=== PATIENT | female | born 1965 | race Caucasian/White ===

== ENCOUNTER 2016-11-13 06:47 | Day surgery (SDC) | payer BC, MEDICAID ==
[~2016-11-13] VITALS: Ht 162.6 cm; Wt 49.1 kg
[~2016-11-13 06:47] MED LIST: ALPR.5 PO; GABA300C5 PO; HYDR-3580 PO; MULT-207 PO; VENL75TA PO
[2016-11-13 07:05] VITALS: BP 114/68; PULSE 75; RESP 20; TEMP 98.3; O2SAT 96
[2016-11-13] MEDS ORDERED: IMIT100T PO (07:15)
[2016-11-13] MEDS ORDERED: PROZ20CA11 PO (07:15)
[2016-11-13 07:56] LABS: AUTOMATED NEUTROPHIL # 3.1 TH/MM3 (1.8-7.7); BASOPHIL % 0.6 % (0.0-2.0); EOSINOPHIL # 0.1 TH/MM3 (0-0.4); EOSINOPHIL % 2.4 % (0.0-4.0); HEMATOCRIT 31.6 % (35.0-46.0); HEMO FLAGS DIFF FINAL; LYMPH % 35.9 % (9.0-44.0); LYMPHOCYTE # 2.1 TH/MM3 (1.0-4.8); MEAN CELL VOLUME 93.1 FL (80.0-100.0); MEAN CORPUSCULAR HEMOGLOBIN 31.1 PG (27.0-34.0); MEAN CORPUSCULAR HGB CONC 33.4 % (32.0-36.0); MONO % 8.7 % (0.0-8.0); NEUT % 52.4 % (16.0-70.0); PLATELET COUNT 244 TH/MM3 (150-450); RED CELL DISTRIBUTION WIDTH 12.8 % (11.6-17.2); WHITE BLOOD COUNT 5.8 TH/MM3 (4.0-11.0)
[2016-11-13 08:06] LABS: APTT (PATIENT) 25.9 SEC (24.3-30.1); INTERNATIONAL NORMALIZED RATIO 0.9 RATIO; PROTHROMBIN TIME - PATIENT 9.4 SEC (9.8-11.6)
[2016-11-13 08:10] LABS: BICARBONATE 27.7 MEQ/L (21.0-32.0); POTASSIUM 4.1 MEQ/L (3.5-5.1)
[2016-11-13] MEDS ORDERED: LACTATED RINGER'S 1000 ML INJ 1,000 ML IV SCH ×2 (08:15→09:00)
[2016-11-13] MEDS ORDERED: DIAZEPAM 5 MG TAB PO SCH (08:15)
[2016-11-13] MEDS ORDERED: IOHEXOL 300 MG/ML 50 ML BTL (for RAD DIAG) IT ONE (08:43)
[2016-11-13] MEDS ORDERED: ACETAMINOPHEN 325 MG TAB PO PRN (09:00)
[2016-11-13] MEDS ORDERED: SODIUM CHLOR 0.9% 1000 ML INJ 1,000 ML IV PRN (09:00)
[2016-11-13] MEDS ORDERED: oxyCODONE/ACETAMINOPHEN 5 MG/325 MG TAB PO PRN (09:00)
[2016-11-13] MEDS ORDERED: ONDANSETRON HCL 4 MG/2 ML VIAL IV PRN (09:00)
--- NOTE | 2016-11-13 09:01 | PD.RAD ---
Post Procedure Progress Note Pre Procedure Diagnosis: (1) Lumbago (2) Cervical radicular pain Post Procedure Diagnosis: (1) Cervical radicular pain (2) Lumbago Procedure Date: Nov 13, 2016 Supervising Radiologist: Kingston Woods Proceduralist/Assist: Judah Greene, RT(R), RT Unruly(R)() Anesthesia: Local Plan of Activity Patient to Unit: ROPU Patient Condition: Good Additional Comments: L2-3 puncture See PACS Report for procedural detail/treatment Kingston Woods MD Nov 13, 2016 09:01
[2016-11-13 09:10] VITALS: BP 93/64; PULSE 68; RESP 20; TEMP 97.9; O2SAT 98
--- NOTE | 2016-11-13 12:04 | RADRPT ---
EXAM DATE/TIME: 11/13/2016 10:17 [facility] COMPARISON: No previous studies available for comparison. INDICATIONS : Post myelogram RADIATION DOSE: 20.68 CTDIvol (mGy) CT of thecervical spine was performed post myelogram. MEDICAL HISTORY : None SURGICAL HISTORY : cervical fusion ENCOUNTER: Initial ACUITY: 1 day PAIN SCALE: 0/10 LOCATION: neck TECHNIQUE: Volumetric scanning of the cervical spine was performed. Multiplanar reconstructions in the sagittal, coronal and oblique axial planes were performed. Using automated exposure control and adjustment o f the mA and/or kV according to patient size, radiation dose was kept as low as reasonably achievable to obtain optimal diagnostic quality images. FINDINGS: Thin section axial imaging of the cervical spine was performed. Sagittal and coronal imaging demonstrate adequate alignment of the vertebral bodies. There has been p revious fusion across the C5/6 level. The hardware is in excellent position. The fusion is solid. There is contrast evident within the thecal sac. The cerebellar tonsils are in their appropriate loca tion. C1/2: No acute bony abnormality identified. C2/3: The thecal space is adequate. The neural foramina are adequate. No significant abnormality is identif ied. C3/4: The thecal space is adequate. The neural foramina are adequate. No significant abnormality is identif ied. C4/5: There is a degenerated disc with minimal disc bulge and osteophytic ridge in. The thecal space and fo ramina appear adequate. C5/6: This level is fused. The thecal space and foramina are adequate. C6/7: There is very minimal disc bulge. This just effaces the ventral thecal sac. The thecal space and fora vinny are adequate. C7/T1: The thecal space is adequate. The neural foramina are adequate. No significant abnormality is identif ied. CONCLUSION: 1. Stable fusion at C5-6 with minimal degenerative changes at C4/5 and C6/7. No significant neural fo raminal stenosis or spinal stenosis identified. Josef Oliveira MD on November 13, 2016 at 11:59 Board Certified Radiologist. This report was verified electronically.
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
--- NOTE | 2016-11-13 12:12 | RADRPT ---
EXAM DATE/TIME: 11/13/2016 10:20 [facility] COMPARISON: CT CERVICAL SPINE W/O CONTRAST, November 13, 2016, 10:17. INDICATIONS : Post myelogram. RADIATION DOSE: 13.28 CTDIvol (mGy) MEDICAL HISTORY : None SURGICAL HISTORY : None. ENCOUNTER: Initial ACUITY: 1 day PAIN SCALE: 0/10 LOCATION: lumbar TECHNIQUE: Volumetric scanning of the lumbar spine was performed. Multiplanar reconstructions in the sagittal, coronal and oblique axial planes were performed. Using automated exposure control and adjustment of the mA and/or kV according to patient size, radiation dose was kept as low as reasonably achievable t o obtain optimal diagnostic quality images. FINDINGS: VERTEBRAE: Normal vertebral body height. ALIGNMENT: No evidence of subluxation. Note is made of intrathecal contrast. T12-L1: The thecal sac has a normal diameter. No evidence of disc bulge or protrusion. The neural foramina are patent bilaterally. L1-L2: The thecal sac has a normal diameter. No evidence of disc bulge or protrusion. The neural foramina are patent bilaterally. L2-L3: The thecal sac has a normal diameter. No evidence of disc bulge or protrusion. The neural foramina are patent bilaterally. L3-L4: The thecal sac has a normal diameter. No evidence of disc bulge or protrusion. The neural foramina are patent bilaterally. L4-L5: The thecal sac has a normal diameter. No evidence of disc bulge or protrusion. The neural foramina are patent bilaterally. L5-S1: The examination demonstrates a left paracentral disc bulge. There is encroachment on the lateral rece ss and base of the foramina on the left. The foramina on the right is adequate. The residual thecal s pace is adequate. CONCLUSION: 1. Left paracentral disc bulge with encroachment on the lateral recess and foraminal at L5-S1. Josef Oliveira MD on November 13, 2016 at 12:07 Board Certified Radiologist. This report was verified electronically.
[2016-11-13 13:30] VITALS: BP 95/58; PULSE 74; RESP 16; O2SAT 97
== END 2016-11-13 13:55 | disposition home or self-care (01) ==
LOC: HROP 06:47 → HRIP 06:53 → HROP 13:55
PROVIDERS: ATTEND Neurological Surgery
DX: M54.2 Cervicalgia (principal); M54.5 Low back pain; M47.816 Spondylosis without myelopathy or radiculopathy, lumbar region; Z01.818 Encounter for other preprocedural examination
CPT/HCPCS: 62305; 72125; 72131; 80048; 85025; 85610; 85730; J7120; Q9967